=== PATIENT | male | born 1995 | race Caucasian/White ===

== ENCOUNTER 2016-10-22 06:55 | Emergency (ER) | payer OTHER ==
[~2016-10-22] VITALS: Ht 165.1 cm; Wt 77.1 kg
[2016-10-22 07:16] VITALS: BP 132/62
--- NOTE | 2016-10-22 07:24 | NUR ---
PATIENT PRESENTS TO ED WITH C/O RIGHT KNEE PAIN S/P WORKING OUT LAST NOC.NO DEFORMITY /HEMATOMA/INFLAMMATION NOTED; PT DENIES ANY MEDICAL HX.DENIES N/V/D; SKIN IS PINK/WARM/DRY; AAOX4 WITH EVEN AND STEADY GAIT; LUNGS CLEAR BL; HR EVEN AND REGULAR; PT DENIES ANY FEVER, CP, SOB, OR COUGH AT THIS TIME; PATIENT STATES PAIN OF 6/10 AT THIS TIME;PATIENT POSITIONED FOR COMFORT; HOB ELEVATED; BEDRAILS UP X2; BED DOWN. ER MD WILL BE NOTIFIED.
[2016-10-22] MEDS ORDERED: IBUPROFEN 800 MG TAB PO ONE (07:30)
--- NOTE | 2016-10-22 08:20 | NUR ---
DANE POWERS AT BEDSIDE.
[2016-10-22 08:24] VITALS: BP 116/62
== END 2016-10-22 08:24 | disposition home or self-care (01) ==
LOC: MED 06:55
DX: M25.561 Pain in right knee (principal)
CPT/HCPCS: 73562; 99284; Q0092

== ENCOUNTER 2017-07-01 04:07 | Emergency (ER) | payer SELFPAY ==
[~2017-07-01] VITALS: Ht 165.1 cm; Wt 82.3 kg
[2017-07-01 04:13] VITALS: BP 154/77
--- NOTE | 2017-07-01 04:18 | NUR ---
PT.AMBULATED TO ER BED 11
--- NOTE | 2017-07-01 04:21 | NUR ---
Pt presents to ED with puncture wound x2 of 2-3mm to right index finger. Pt states he was pulling a stray dog from a [place] in [facility]. The [place] ran away but [place] attacked the Pt biting his finger. Pt states dog appeared to have a current jute bag sewer. VSS. ER MD at bedside fore evaluation. Continue to monitor.
[2017-07-01] MEDS ORDERED: CEPHALEXIN 500 MG CAP PO ONE (04:30)
[2017-07-01 05:00] VITALS: BP 154/77
--- NOTE | 2017-07-01 05:00 | NUR ---
Patient discharged with v/s stable. Finger soaked in NS and betadine, cleansed pat dry. Written and verbal after care instructions given and explained. Patient alert, oriented and verbalized understanding of instructions. Ambulatory with steady gait. All questions addressed prior to discharge. ID band removed. Patient advised to follow up with PMD. Rx of Keflex given. Patient educated on indication of medication including possible reaction and side effects. Opportunity to ask questions provided and answered.
== END 2017-07-01 05:00 | disposition home or self-care (01) ==
LOC: MED 04:07
DX: S61.230A Puncture wound without foreign body of right index finger without damage to nail, initial encounter (principal); W54.0XXA Bitten by dog, initial encounter; Y93.89 Activity, other specified; Y92.89 Other specified places as the place of occurrence of the external cause; Y99.8 Other external cause status
CPT/HCPCS: 90471; 90715; 99283

== ENCOUNTER 2017-11-10 19:07 | Emergency (ER) | payer OTHER ==
[~2017-11-10] VITALS: Ht 165.1 cm; Wt 86.2 kg
[2017-11-10 19:13] VITALS: BP 126/83
--- NOTE | 2017-11-10 19:16 | NUR ---
TO BED # 8 AMBULATORY
--- NOTE | 2017-11-10 19:20 | NUR ---
PATIENT PRESENTS TO ED WITH C/O CHEST PAIN X 2 MONTHS WHILE BREATHING. EKG NSR. PT SKIN IS PINK/WARM/DRY; AAOX4 WITH EVEN AND STEADY GAIT; LUNGS CLEAR BL; HR EVEN AND REGULAR; PATIENT STATES PAIN OF 6/10 AT THIS TIME; VSS; PATIENT POSITIONED FOR COMFORT; HOB ELEVATED; BEDRAILS UP X2; BED DOWN. ER MD MADE AWARE OF PT STATUS.
--- NOTE | 2017-11-10 19:38 | NUR ---
Dr. Orantes evaluating patient at bedside.
[2017-11-10] MEDS ORDERED: KETOROLAC 30 MG/ML VIAL IVP ONE (19:55)
[2017-11-10] MEDS ORDERED: NACL 0.9% 1,000 ML IV ONE (19:55)
--- NOTE | 2017-11-10 20:10 | NUR ---
[employer] ENGINEER AT BEDSIDE DRAWING LABS. PT TOLERATED WELL.
--- NOTE | 2017-11-10 20:11 | NUR ---
X-Ray at bedside.
[2017-11-10 20:17] LABS: BASOPHILS % (AUTO) 0.4 % (0.0-2.0); EOSINOPHILS # (AUTO) 0.2 K/uL (0-0.4); EOSINOPHILS % (AUTO) 1.9 % (0.0-4.0); HEMATOCRIT 42.7 % (36-52); HEMOGLOBIN 14.2 g/dL (12.0-18.0); LYMPHOCYTES # (AUTO) 3.4 K/uL (2.0-11.5); LYMPHOCYTES % (AUTO) 40.9 % (20.5-51.1); MEAN CORPUSCULAR HEMOGLOBIN 30 pg (27-31); MEAN CORPUSCULAR HGB CONC 33 g/dL (33-37); MEAN CORPUSCULAR VOLUME 89.4 fL (80-94); MONOCYTES # (AUTO) 0.7 K/uL (0.8-1.0); NEUTROPHILS % (AUTO) 47.8 % (42.2-75.2); PLATELET COUNT (AUTO) 220 K/uL (140-450); RED BLOOD CELL COUNT(AUTO) 4.78 MIL/uL (4.20-6.10); RED CELL DISTRIBUTION WIDTH 13.2 % (11.6-13.7); WHITE BLOOD COUNT (AUTO) 8.3 K/uL (4.8-10.8)
[2017-11-10 20:36] LABS: ANION GAP 9.3 (8-16); CARBON DIOXIDE 29.9 mmol/L (21-32); CREATININE 0.8 mg/dL (0.7-1.3); POTASSIUM 4.2 mmol/L (3.5-5.1)
[2017-11-10 20:42] LABS: TOTAL BILIRUBIN 0.2 mg/dL (0.0-1.0)
[2017-11-10] MEDS ORDERED: PANTOPRAZOLE 40 MG INJ VIAL IVP ONE (21:00)
[2017-11-10 22:22] VITALS: BP 131/78
--- NOTE | 2017-11-10 22:22 | NUR ---
Patient discharged with v/s stable. Written and verbal after care instructions given and explained. Patient alert, oriented and verbalized understanding of instructions. Ambulatory with steady gait. All questions addressed prior to discharge. ID band removed. Patient advised to follow up with PMD. Rx of OMEPRAZOLE AND NAPROSYN given. Patient educated on indication of medication including possible reaction and side effects. Opportunity to ask questions provided and answered.
== END 2017-11-10 22:22 | disposition home or self-care (01) ==
LOC: MED 19:07
DX: M94.0 Chondrocostal junction syndrome [Tietze] (principal); R94.31 Abnormal electrocardiogram [ECG] [EKG]
CPT/HCPCS: 36415; 71045; 80053; 85025; 93005; 96374; 96375; 99285; C9113; J1885; Q0092

== ENCOUNTER 2018-07-19 00:46 | Emergency (ER) | payer OTHER ==
[~2018-07-19] VITALS: Ht 165.1 cm; Wt 85.7 kg
[2018-07-19 01:08] VITALS: BP 129/78
--- NOTE | 2018-07-19 01:08 | NUR ---
TO BED # 07 AMBULATORY
--- NOTE | 2018-07-19 01:10 | NUR ---
23 YO M BIB SELF C/O LACERATION TO LEFT INDEX FINGER S/P CUTTING CILANTRO ABOUT 4 HOURS AGO. PT STATED HE WRAPPED BANDAIDS AROUND FINGER TO STOP BLEEDING AND CONTINUED WORKING. QUARTER OF NAIL AND PORTION OF SKIN IS MISSING WITH COPIOUS DRIED BLOOD TO SITE. NO ACTIVE BLEEDING AT THIS TIME. PMH-- DENIES RX-- DENIES PT IS CALM, COOPERATIVE, BEHAVIOR APPROPRIATE. POSITIONED FOR COMFORT. HOB ELEVATED. SIDE RAIL UP X1. BED IN LOWEST POSITION. VSS. NO APPARENT DISTRESS AT THIS TIME. SKIN PINK, DRY, WARM.
[2018-07-19] MEDS ORDERED: IBUPROFEN 800 MG TAB PO ONE (01:25)
[2018-07-19] MEDS ORDERED: BACITRACIN OINT 500 UNITS/GM PKT TP ONE (01:25)
--- NOTE | 2018-07-19 01:40 | NUR ---
PLACED LEFT INDEX FINGER IN A BETADINE SOAK. CLEANED WITH GAUZE AND NS. APPLIED BACITRACIN AND APPLIED GAUZE WRAP TO FINGER.
[2018-07-19 01:57] VITALS: BP 129/78
== END 2018-07-19 01:57 | disposition home or self-care (01) ==
LOC: MED 00:46
DX: S61.211A Laceration without foreign body of left index finger without damage to nail, initial encounter (principal); W45.8XXA Other foreign body or object entering through skin, initial encounter; Y93.89 Activity, other specified; Y92.89 Other specified places as the place of occurrence of the external cause; Y99.8 Other external cause status
CPT/HCPCS: 99283

== ENCOUNTER 2018-11-08 21:13 | Emergency (ER) | payer OTHER ==
[~2018-11-08] VITALS: Ht 165.1 cm; Wt 85.7 kg
[2018-11-08 22:00] VITALS: BP 139/90
--- NOTE | 2018-11-08 22:03 | NUR ---
TO LOBBY A/W BED, AMBULATORY
[2018-11-08 22:39] LABS: BASOPHILS % (AUTO) 0.5 % (0.0-2.0); EOSINOPHILS # (AUTO) 0.1 K/uL (0-0.4); EOSINOPHILS % (AUTO) 1.6 % (0.0-4.0); HEMATOCRIT 43.4 % (36-52); HEMOGLOBIN 14.4 g/dL (12.0-18.0); LYMPHOCYTES # (AUTO) 2.9 K/uL (2.0-11.5); LYMPHOCYTES % (AUTO) 35.9 % (20.5-51.1); MEAN CORPUSCULAR HEMOGLOBIN 30 pg (27-31); MEAN CORPUSCULAR HGB CONC 33 g/dL (33-37); MEAN CORPUSCULAR VOLUME 88.7 fL (80-94); MONOCYTES # (AUTO) 0.7 K/uL (0.8-1.0); MONOCYTES % (AUTO) 9.2 % (1.7-9.3); NEUTROPHILS # (AUTO) 4.2 K/uL (1.8-7.7); NEUTROPHILS % (AUTO) 52.8 % (42.2-75.2); PLATELET COUNT (AUTO) 238 K/uL (140-450); RED BLOOD CELL COUNT(AUTO) 4.89 MIL/uL (4.20-6.10); RED CELL DISTRIBUTION WIDTH 13.8 % (11.6-13.7)
[2018-11-08 22:48] LABS: ANION GAP 12.6 (8-16); CARBON DIOXIDE 29.4 mmol/L (21-32); CREATININE 1.4 mg/dL (0.7-1.3)
[2018-11-08 22:54] LABS: ALBUMIN 4.2 g/dL (3.4-5.0); TOTAL BILIRUBIN 0.2 mg/dL (0.0-1.0)
--- NOTE | 2018-11-09 00:23 | NUR ---
PT AMBULATED TO BED
--- NOTE | 2018-11-09 00:30 | NUR ---
23 Y/O MALE, PRESENTED TO ED C/O LOWER ABD PAIN 5/10 NON-RADIATING, NAUSEA, CHILLS, DIARRHEA SINCE FRIDAY. TODAY WITH BLACK STOOLS, NO PMH. AAOX3, GCS 15, RR EVEN UNLABORED, ED MD DR. GUO MADE AWARE, WILL CONTINUE TO MONITOR CLOSELY, BED LOCKED IN LOWEST POSITION, BED SIDERAILS UPX1.
--- NOTE | 2018-11-09 01:31 | NUR ---
DR. GUO BEDSIDE EVALUATING PT
[2018-11-09 01:51] VITALS: BP 131/70
--- NOTE | 2018-11-09 01:51 | NUR ---
Patient discharged with v/s stable. Written and verbal after care instructions given and explained. Patient alert, oriented and verbalized understanding of instructions. Ambulatory with steady gait. All questions addressed prior to discharge. ID band removed. Patient advised to follow up with PMD. Rx of CIPRO, IMODIUM, MOTRIN, ZOFRAN given. Patient educated on indication of medication including possible reaction and side effects. Opportunity to ask questions provided and answered.
== END 2018-11-09 01:51 | disposition home or self-care (01) ==
LOC: MED 21:13
DX: R19.7 Diarrhea, unspecified (principal); R11.0 Nausea; R10.30 Lower abdominal pain, unspecified
CPT/HCPCS: 36415; 80053; 83690; 85025; 99283

== ENCOUNTER 2020-06-22 23:00 | Emergency (ER) | payer OTHER ==
[~2020-06-22] VITALS: Ht 165.1 cm; Wt 90.7 kg
[2020-06-22 23:59] VITALS: BP 150/88
--- NOTE | 2020-06-23 00:01 | NUR ---
TO LOBBY A/W BED AMBULATORY
--- NOTE | 2020-06-23 00:55 | NUR ---
25 Y/O MALE PRESENTS TO THE ED WITH C/O FLANK PAIN. PT REPORTS A 10/10 PAIN. PT REPORTS INTERMITTENT PAIN STARTED 3 DAYS AGO AND PAIN HAS BECOME UNBEARABLE TODAY. PT HAS NO TROUBLE URINATING. ABD NOT DISTENDED. PT HAS NAUSEA BUT DENIES ANY VOMITING. PMH: N/A ALLERGIES: NKA
[2020-06-23] MEDS ORDERED: KETOROLAC 30 MG/ML VIAL IVP ONE (01:15)
[2020-06-23] MEDS ORDERED: MORPHINE SULFATE 4 MG/ML SYR IVP ONE (01:15)
[2020-06-23] MEDS ORDERED: NACL 0.9% 1,000 ML IV ONE (01:15)
[2020-06-23 01:34] LABS: BASOPHILS # (AUTO) 0.1 K/uL (0.00-0.22); BASOPHILS % (AUTO) 0.5 % (0.0-2.0); EOSINOPHILS % (AUTO) 0.3 % (0.0-4.0); HEMATOCRIT 43.4 % (36-52); HEMOGLOBIN 14.6 g/dL (12.0-18.0); LYMPHOCYTES # (AUTO) 2.7 K/uL (2.0-11.5); LYMPHOCYTES % (AUTO) 19.3 % (20.5-51.1); MEAN CORPUSCULAR HEMOGLOBIN 30 pg (27-31); MEAN CORPUSCULAR HGB CONC 34 g/dL (33-37); MEAN CORPUSCULAR VOLUME 88.7 fL (80-94); MONOCYTES # (AUTO) 1.5 K/uL (0.8-1.0); MONOCYTES % (AUTO) 10.8 % (1.7-9.3); NEUTROPHILS # (AUTO) 9.7 K/uL (1.8-7.7); NEUTROPHILS % (AUTO) 69.1 % (42.2-75.2); PLATELET COUNT (AUTO) 260 K/uL (140-450); RED CELL DISTRIBUTION WIDTH 13.4 % (11.6-13.7)
[2020-06-23 01:35] LABS: APPEARANCE,URINE CLEAR (CLEAR); BILIRUBIN,URINE NEGATIVE (NEGATIVE); BLOOD, URINE 2+ (NEGATIVE); COLOR,URINE YELLOW (YELLOW); LEUKOCYTE ESTERASE ,URINE NEGATIVE (NEGATIVE); NITRITE, URINE NEGATIVE (NEGATIVE); PH,URINE 5.5 (5.0-9.0); UGLUCOSE NEGATIVE (NEGATIVE)
[2020-06-23 01:46] LABS: WBC,URINE 0-5 /HPF (0-5)
[2020-06-23 01:51] LABS: ALBUMIN 4.2 g/dL (3.4-5.0); ANION GAP 12.2 (8-16); CARBON DIOXIDE 26.6 mmol/L (21-32); CREATININE 2.2 mg/dL (0.6-1.3); POTASSIUM 3.8 mmol/L (3.5-5.1); TOTAL BILIRUBIN 0.4 mg/dL (0.0-1.0)
--- NOTE | 2020-06-23 02:11 | NUR ---
PT TO CT VIA W/C
--- NOTE | 2020-06-23 02:20 | NUR ---
PT BACK FROM CT
[2020-06-23] MEDS ORDERED: cefTRIAXone 1,000 MG VIAL ONE (03:44)
[2020-06-23] MEDS: NACL 0.9% 1,000 ML IV SCH ×2 (03:50→04:25)
[2020-06-23] MEDS ORDERED: CEPH500C16 PO (04:38)
[2020-06-23 05:12] VITALS: BP 144/76
== END 2020-06-23 05:20 | disposition home or self-care (01) ==
LOC: MED 23:00
DX: N12 Tubulo-interstitial nephritis, not specified as acute or chronic (principal); N17.8 Other acute kidney failure
CPT/HCPCS: 36415; 74176; 80053; 81001; 83690; 85025; 96361; 96365; 96375; 99284; J0696; J1885; J2270; J7030; J7060

== ENCOUNTER 2021-03-01 02:58 | Emergency (ER) | payer OTHER ==
[~2021-03-01] VITALS: Ht 157.5 cm; Wt 90.7 kg
[~2021-03-01 02:58] MED LIST: CEPH500C16 PO
[2021-03-01 03:05] VITALS: BP 151/67
--- NOTE | 2021-03-01 03:11 | NUR ---
patient ambulated to bed 12
--- NOTE | 2021-03-01 03:20 | NUR ---
REPORTS NAUSEA AND VOMITING SINCE 1800 YESTERDAY WITH SOME REPORTED "SHAKES". ALSO STATES HE HAD A MIGRAINE SHORTLY AFTER. NO OTHER COMPLAINTS OR RELEVANT MEDICAL HISTORY. ROXY
[2021-03-01 03:47] LABS: APPEARANCE,URINE CLEAR (CLEAR); BILIRUBIN,URINE NEGATIVE (NEGATIVE); BLOOD, URINE 2+ (NEGATIVE); COLOR,URINE YELLOW (YELLOW); LEUKOCYTE ESTERASE ,URINE NEGATIVE (NEGATIVE); NITRITE, URINE NEGATIVE (NEGATIVE); UGLUCOSE NEGATIVE (NEGATIVE)
[2021-03-01 03:49] LABS: BASOPHILS # (AUTO) 0.1 K/uL (0.00-0.22); BASOPHILS % (AUTO) 0.9 % (0.0-2.0); EOSINOPHILS # (AUTO) 0.1 K/uL (0-0.4); EOSINOPHILS % (AUTO) 0.6 % (0.0-4.0); HEMATOCRIT 45.4 % (36-52); HEMOGLOBIN 15.4 g/dL (12.0-18.0); LYMPHOCYTES # (AUTO) 1.7 K/uL (2.0-11.5); LYMPHOCYTES % (AUTO) 10.6 % (20.5-51.1); MEAN CORPUSCULAR HEMOGLOBIN 30 pg (27-31); MEAN CORPUSCULAR HGB CONC 34 g/dL (33-37); MONOCYTES # (AUTO) 0.6 K/uL (0.8-1.0); MONOCYTES % (AUTO) 3.8 % (1.7-9.3); NEUTROPHILS # (AUTO) 13.6 K/uL (1.8-7.7); NEUTROPHILS % (AUTO) 84.1 % (42.2-75.2); PLATELET COUNT (AUTO) 292 K/uL (140-450); RED BLOOD CELL COUNT(AUTO) 5.16 MIL/uL (4.20-6.10); RED CELL DISTRIBUTION WIDTH 13.7 % (11.6-13.7); WHITE BLOOD COUNT (AUTO) 16.1 K/uL (4.8-10.8)
[2021-03-01 04:01] LABS: ALBUMIN 4.5 g/dL (3.4-5.0); ANION GAP 15.5 (8-16); CARBON DIOXIDE 24.9 mmol/L (21-32); CREATININE 1.2 mg/dL (0.6-1.3); POTASSIUM 3.4 mmol/L (3.5-5.1); TOTAL BILIRUBIN 0.4 mg/dL (0.0-1.0)
[2021-03-01] MEDS: NACL 0.9% 2,000 ML IV ONE (04:10)
[2021-03-01] MEDS: ONDANSETRON 4 MG/2 ML VIAL IVP ONE (04:10)
[2021-03-01 04:18] LABS: RBC,URINE 0-5 /HPF (0-5); WBC,URINE 0-5 /HPF (0-5)
[2021-03-01] MEDS: KETOROLAC 30 MG/ML VIAL IVP ONE (05:21)
[2021-03-01] MEDS: diphenhydrAMINE 50 MG/ML VIAL IVP ONE (05:21)
[2021-03-01] MEDS: METOCLOPRAMIDE 10 MG/2 ML INJ VIAL IVP ONE (05:21)
[2021-03-01] MEDS ORDERED: ACET-10509 PO (05:51)
[2021-03-01] MEDS ORDERED: ONDA-188 PO (05:51)
--- NOTE | 2021-03-01 05:59 | NUR ---
PATIENT CLEARED FOR DISHCARGE AT THIS TIME. ADVISED TO FOLLOW UP WITH PCP AND RETURN IF CONDITION WORSENS. NO FURTHER QUESTIONS FOLLOWING DISCHARGE TEACHING. RX SENT WITH PATIENT TO PHARMACY
[2021-03-01 06:00] VITALS: BP 102/60
== END 2021-03-01 05:59 | disposition home or self-care (01) ==
LOC: MED 02:58
DX: R11.2 Nausea with vomiting, unspecified (principal); R10.9 Unspecified abdominal pain; R51.9 Headache, unspecified; Z79.899 Other long term (current) drug therapy
CPT/HCPCS: 36415; 74176; 80053; 81001; 83690; 85025; 96361; 96374; 96375; 99284; J1200; J1885; J2405; J2765

== ENCOUNTER 2022-10-02 19:44 | Emergency (ER) | payer OTHER ==
[~2022-10-02] VITALS: Ht 165.1 cm; Wt 86.2 kg
[~2022-10-02 19:44] MED LIST changes: +ACET-10509 PO; +ONDA-188 PO
[2022-10-02 20:24] VITALS: BP 143/86; PULSE 56; TEMP 97.4
--- NOTE | 2022-10-02 20:30 | NUR ---
TO LOBBY FOLLOWING TRIAGE
[2022-10-02] MEDS ORDERED: FLUORESCEIN OPTH STRIP 1 MG OP ONE (20:50)
--- NOTE | 2022-10-02 21:09 | NUR ---
TO BED 10 AMBILATORY
--- NOTE | 2022-10-02 21:40 | NUR ---
Patient discharged with v/s stable. Written and verbal after care instructions given and explained. Patient verbalized understanding. Ambulatory with steady gait. All questions addressed prior to discharge. Advised to follow up with PMD.
== END 2022-10-02 21:40 | disposition home or self-care (01) ==
LOC: MED 19:44
DX: H01.004 Unspecified blepharitis left upper eyelid (principal); Z79.899 Other long term (current) drug therapy; Z79.2 Long term (current) use of antibiotics
CPT/HCPCS: 99283

== ENCOUNTER 2023-03-07 09:29 | Emergency (ER) | payer OTHER ==
[~2023-03-07] VITALS: Ht 165.1 cm; Wt 87.5 kg
[2023-03-07 10:21] VITALS: BP 140/85; PULSE 72; RESP 16; TEMP 98.2; O2SAT 99
[2023-03-07] MEDS ORDERED: IBUP-2213 PO (12:19)
[2023-03-07 13:06] VITALS: BP 140/85; PULSE 72; RESP 16; TEMP 98.2; O2SAT 99
== END 2023-03-07 13:06 | disposition home or self-care (01) ==
LOC: MED 09:29
DX: S43.492A Other sprain of left shoulder joint, initial encounter (principal); V49.88XA Car occupant (driver) (passenger) injured in other specified transport accidents, initial encounter; Y93.89 Activity, other specified; Y92.89 Other specified places as the place of occurrence of the external cause; Y99.8 Other external cause status
CPT/HCPCS: 73030; 99283

== ENCOUNTER 2023-12-25 19:24 | Emergency (ER) | payer OTHER ==
[~2023-12-25] VITALS: Ht 165.1 cm; Wt 86.2 kg
[~2023-12-25 19:24] MED LIST changes: -ACET-10509 PO; +ACET500T99 PO; +IBUP-2213 PO
[2023-12-25 19:38] VITALS: BP 120/66; PULSE 95; RESP 24; TEMP 97.3; O2SAT 99
[2023-12-25] MEDS: CYCLOBENZAPRINE 10 MG TAB PO ONE (22:24)
[2023-12-25] MEDS: KETOROLAC 30 MG/ML VIAL IM ONE (22:27)
[2023-12-25] MEDS: LIDOCAINE 5% 1 EA PATCH TP ONE (22:27)
[2023-12-25 23:04] VITALS: BP 122/67; PULSE 90; RESP 22; TEMP 98
[2023-12-25 23:05] VITALS: O2SAT 99
[2023-12-25] MEDS ORDERED: NAPR-337 PO (23:28)
[2023-12-25] MEDS ORDERED: CYCL-711 PO (23:28)
[2023-12-25] MEDS ORDERED: LID5T TP (23:28)
[2023-12-26] MEDS: HYDROcodone/APAP 5/325 MG 1 TAB TAB PO ONE (00:05)
== END 2023-12-26 00:29 | disposition home or self-care (01) ==
LOC: MED 19:24
DX: S39.012A Strain of muscle, fascia and tendon of lower back, initial encounter (principal); M62.830 Muscle spasm of back; Z79.899 Other long term (current) drug therapy; X58.XXXA Exposure to other specified factors, initial encounter; Y92.89 Other specified places as the place of occurrence of the external cause; Y93.89 Activity, other specified; Y99.8 Other external cause status
CPT/HCPCS: 72110; 96372; 99284; J1885